=== PATIENT | female | born 1980 ===

== ENCOUNTER 2017-05-28 21:58 | Emergency (ER) | payer MEDICAID, OTHER ==
[2017-05-08 09:16] VITALS: BMI 35.9
--- NOTE | 2017-05-29 04:36 | OBHP ---
Datetime: 05/28/2017 23:38 IP Adm Impression: Term, intrauterine IP Admit Plan: Observation/Evaluation; Discharge home Admit Comment, IP Provider: [facility]# [id number] 36 y/o Female, , IUP@37 to 38 weeks by last LMP and second trimester U/S. patient presents to [facility] c/o bleeding per vagina. she admits 2 episodes of mild bleeding associated with mild pain. patie nt denies any LOF or CTX, admits good movement. Denies any fever, chills, vomiting, cp or SOB. PNC: [facility] PNI: Denies PNL: Rubella immune, HIV/RPR negative, GC/Ch neg, O+, Cephalic presentation and No placenta Previ a by last U/S at clinic PMH: Blindness L eye, Anemia, and PP depression PSH: Denies OBhx: , 4xSNVD Allg: NKDA Meds: PNV + Iron SH: Denies alcohol,smoking or drug use FH: Denies ROS: As per HPI VS: stable. 117/71, FHR:150 PE: Gravid abdo. NAD. Pelvic exam, no bleeding Cervix: FT/thick/high U/S: cephalic presentation A/P: 36 y/o Female, , IUP@37 to 38 weeks by last LMP and second trimester U/S. not in labor; no VB noted - U/S: Cephalic presentation - ER precautions given - Follow up with clinic, 05/30/17 is next visit to clinic - D/c home Case discussed and patient seen with Dr. Mcgovern --- Moi Sampson, PGY-1 OB hospitalist note: With PGY1, I saw and examined this pt. will dishcarge home. Labor insturcio tns given. She has appt with [facility] May 30. Chart rev'd (Different EDC by LMP/best sono 24w / no GBS results- advised pt to crab picker results. Pelvic Type - PN: Adequate Extremities - PN: Normal Abdomen - PN: Normal Back - PN: Normal Breast - PN: Not Done Lungs - PN: Normal Heart - PN: Normal Thyroid - PN: Normal Neurologic - PN: Normal HEENT - PN: Abnormal General - PN: Normal Presentation-Admit: Vertex FHR - Baseline A Provider: 150 Membranes, Provider: Intact Contraction Comments Provider: occ Comments, ACOG Physical Exam: Abnormal left eye Pool Provider: Negative IP Hx Assessment: The History has been Reviewed and is Current Vital Signs Provider: Reviewed; Within Normal Limits IP Chief Complaint: Vaginal bleeding NICHD Variability Prov Fetus A: Moderate 6-25bpm NICHD Accel Fetus A IP Provider: 15X15 FHR Category Provider Fetus A: Category I NICHD Decel Fetus A IP Provider: None Dilatation, Provider: FT Effacement, Provider: thick Station, Provider: high Genitourinary Exam: Normal DTRs - PN: Normal
[2017-05-29 04:54] VITALS: BP 126/76; PULSE 77; RESP 17; TEMP 98.4
== END 2017-05-28 23:40 | disposition home or self-care (01) ==
LOC: H.EROB2 21:58 → H.EROB 22:12 → H.EROB2 23:40
DX: O46.93 Antepartum hemorrhage, unspecified, third trimester (principal); O26.93 Pregnancy related conditions, unspecified, third trimester; O47.1 False labor at or after 37 completed weeks of gestation; Z3A.38 38 weeks gestation of pregnancy

== ENCOUNTER 2017-05-31 11:04 | Inpatient (IN) | payer MEDICAID, SELFPAY ==
[2017-05-31] MEDS ORDERED: Lactated Ringer's 1,000 ML IV SCH (11:30)
[2017-05-31] MEDS ORDERED: Oxytocin 30 UNITS in Sodium Chloride 0.9% 500 ML IV ONE (11:40)
[2017-05-31] MEDS ORDERED: Lidocaine 1% Inj (20ml) ONE (11:54)
[2017-05-31 11:58] LABS: BASO # 0.2 K/uL (0.0-0.2); BASO % 1.3 % (0.0-2.0); EOS # 0.4 K/uL (0.0-0.7); EOS % 3.6 % (0.0-4.0); HEMATOCRIT 36.1 % (34.0-47.0); LYMPH # 3.9 K/uL (1.0-4.3); MEAN CELL VOLUME 83.7 fl (81.0-99.0); MEAN CORPUSCULAR HGB CONC 32.3 g/dL (33.0-37.0); MEAN PLATELET VOLUME 9.3 fl (7.2-11.7); MONO # 1.6 K/uL (0.0-0.8); MONO % 13.2 % (0.0-10.0); NEUT # 6.2 K/uL (1.8-7.0); NEUT % 49.9 % (50.0-75.0); WHITE BLOOD COUNT 12.3 K/uL (4.8-10.8)
[2017-05-31] MEDS ORDERED: Oxycodone/Acetaminophen 5/325 mg Tab PO PRN (12:16)
[2017-05-31] MEDS ORDERED: Benzocaine/Menthol SPRAY TOP PRN (12:16)
--- NOTE | 2017-05-31 12:28 | OBADHP ---
Datetime: 05/31/2017 12:23 Admit Comment, IP Provider: 36 yo at 38 wks in labor Pt admitted to L_D NST reactive H_P dictated, "[id number]" (ES) Pelvic Type - PN: Adequate Extremities - PN: Normal Abdomen - PN: Normal Back - PN: Normal Lungs - PN: Normal Heart - PN: Normal HEENT - PN: Not Done General - PN: Normal FHR - Baseline A Provider: 130s Membranes, Provider: Intact Contraction Comments Provider: Q2-3 Vital Signs Provider: Reviewed; Within Normal Limits IP Chief Complaint: Uterine contractions NICHD Variability Prov Fetus A: Minimal - Undetectable to <5bpm NICHD Accel Fetus A IP Provider: 15X15 FHR Category Provider Fetus A: Category I NICHD Decel Fetus A IP Provider: None Dilatation, Provider: 10 Effacement, Provider: 0 Genitourinary Exam: Normal EGA AdmitDate IP: 38.0 IP Adm Impression: Term, intrauterine IP Admit Plan: Initiate labor protocol Datetime: 05/28/2017 23:38 Breast - PN: Not Done Thyroid - PN: Normal Neurologic - PN: Normal Presentation-Admit: Vertex Comments, ACOG Physical Exam: Abnormal left eye Pool Provider: Negative IP Hx Assessment: The History has been Reviewed and is Current Station, Provider: high DTRs - PN: Normal
--- NOTE | 2017-05-31 12:33 | OBDS ---
DELIVERY PERSONNEL Delivery Doctor: Gume uSarez MD Retreader: Barbara Hernández RN MATERNAL INFORMATION Delivery Anesthesia: None Medications in Delivery: lidocaine 1%, Pitocin 30 units in 500 ml lr Estimated Blood Loss (ml): 100 Placenta Cultured: No Provider Comments: Pt progressed to complete, SROM for clear fluid at 11:43am. Pt pushed to deliver a viable female through clear fluid at 11:46am. Apgars 9 and 9. Wt 3530 gms, 7#12. p laced on mother's abdomen. Mouth and nares bulb-suctioned. Cord clamped and cut. Cord blood collect ed. Placenta delivered spontaneously intact w/ 3vc at 11:54am. Lidocaine injected into vagina and p erineum. Second degree tear repaired w/ 3-0v and 3-0 rapide. Rectum intact. Pt and baby tolerated the procedure well. EBL 100 mL LABOR SUMMARY EDC: 06/14/2017 00:00 No. Babies in Womb: 1 Attempted: No Labor Anesthesia: None LABOR INFORMATION Reason for Induction: Not Applicable Onset of Labor: 05/31/2017 06:00 Complete Dilatation: 05/31/2017 11:26 Oxytocin: N/A Group B Beta Strep: Negative Steroids Given: None Reason Steroids Not Administered: Not Applicable MEMBRANES Membranes Rupture Method: Spontaneous Amniotic Fluid Color: Clear Amniotic Fluid Amount: Moderate Amniotic Fluid Odor: Normal STAGES OF LABOR Stage 1 hrs: 5 Stage 1 min: 26 Stage 2 hrs: 0 Stage 2 min: 20 Stage 3 hrs: 0 Stage 3 min: 8 Total Time in Labor hrs: 5 Total Time in Labor min: 54 VAGINAL DELIVERY Episiotomy: None Laceration Extension: First Degree Laceration Repair: Yes BABY A INFORMATION Infant Delivery Date/Time: 05/31/2017 11:46 Method of Delivery: Vaginal Born in Route : No : N/A Forceps: N/A Vacuum Extraction: N/A Shoulder Dystocia : No SHOULDER DYSTOCIA BABY A Infant Delivery Date/Time: 05/31/2017 11:46 PRESENTATION/POSITION BABY A Presentation: Cephalic Cephalic Presentation: Vertex Breech Presentation: N/A PLACENTA INFORMATION BABY A Placenta Delivery Time : 05/31/2017 11:54 Placenta Method of Delivery: Spontaneous Placenta Status: Delivered SCORES BABY A Heart Rate 1 min: >100 bpm Resp Effort 1 min: Good Cry Reflex Irritability 1 min: Cough or Sneeze or Pulls Away Muscle Tone 1 min: Active Motion Color 1 min: Body [place], Extremities Blue Resuscitation Effort 1 min: N/A SCORE 1 MIN: 9 Heart Rate 5 min: >100 bpm Resp Effort 5 min: Good Cry Reflex Irritability 5 min: Cough or Sneeze or Pulls Away Muscle Tone 5 min: Active Motion Color 5 min: Body [place], Extremities Blue Resuscitation Effort 5 min: N/A SCORE 5 MIN: 9 INFANT INFORMATION BABY A Gestational Age at Delivery: 38.0 Gestational Status: Term Outcome : Liveborn Infant Condition : Stable Infant Sex: Female WEIGHT/LENGTH BABY A Birthweight (gms): 3530 Infant Weight (lb): 7 Weight (oz): 12 CORD INFORMATION BABY A No. Cord Vessels: 3 Nuchal Cord : N/A Cord Blood Taken: Yes Suction: Mouth; Nose
[2017-05-31 14:47] LABS: BLOOD UREA NITROGEN 11 mg/dl (7-17); CALCIUM 8.7 mg/dL (8.4-10.2); CARBON DIOXIDE 18 mmol/L (22-30); CHLORIDE 110 mmol/L (98-107); GFR AFRICAN-AMERICAN > 60; GLUCOSE,RANDOM 110 mg/dL (65-105); POTASSIUM 4.5 MMOL/L (3.6-5.0); SODIUM 135 mmol/l (132-148)
--- NOTE | 2017-05-31 22:08 | HP ---
HISTORY OF PRESENT ILLNESS: This is a 36-year-old G5, P4-0-0-4 at 38 weeks with an EDC of 06/14/2017 by LMP who presents with painful contractions. She presented to the OB-ED, was considered almost fully by the RN and so she was sent to Labor and Delivery. This is complicated by the fact that she is advanced maternal age, declined amniocentesis, maternal obesity and anemia. The patient also has a history of depression. She also had an elevated 1 hr Glucola of 187on 03/21/2017. 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 MEDICATIONS: vitamins. ALLERGIES: NO KNOWN DRUG ALLERGIES. SOCIAL HISTORY: She denies tobacco, alcohol. No illicit drug use. FAMILY HISTORY: Noncontributory. GYNECOLOGIC HISTORY: Regular periods. Patient denies any STDs or any abnormal Pap. OBSTETRIC HISTORY: In 1999, she underwent a vaginal delivery of a male at 40 weeks, weighing 7 pounds 5 ounces. In 2000, she underwent a vaginal delivery of a female infant weighing 8 pounds 5 ounces. In 01/2012, she underwent vaginal delivery of a female weighing 8 pounds and in 08/2013, she underwent a vaginal delivery of a male weighing 8 pounds 4 ounces. LABORATORY DATA: On 01/31/2017, maternal serum AFP was negative. Gonorrhea and Chlamydia were negative. Hemoglobin A1c was 5.9 on 01/31/2017. Blood type is O positive. Antibody screen negative. Rubella immune. QuantiFERON negative. Group B strep was negative, done on 05/20/2017. On 05/21/2017, HIV was negative and RPR was negative. On 03/21/2017, one-hour Glucola was 187, noninvasive testing was no aneuploidy detected, female fetus. Cystic fibrosis was negative. Fragile X was negative. SMN1 copy #2, reduced carrier risk. Pap was negative. PHYSICAL EXAMINATION: GENERAL: Patient appears very uncomfortable. ABDOMEN: Soft, nontender, gravid. EXTREMITIES: Nontender. VAGINAL: Fully dilated per RN External monitoring in the 130s with moderate variability, positive accelerations Tocodynamometer: contractions every 2 to 3 minutes. ASSESSMENT AND PLAN: This is a 36-year-old 5, para 4-0-0-4, at 38 weeks in active labor. Pt admitted to L&D. Will draw labs and start fluid. Dre Suarez MD [facility]
[2017-06-01 07:12] LABS: HEMATOCRIT 33.2 % (34.0-47.0); MEAN CELL VOLUME 84.9 fl (81.0-99.0); MEAN CORPUSCULAR HEMOGLOBIN 26.9 pg (27.0-31.0); MEAN CORPUSCULAR HGB CONC 31.7 g/dL (33.0-37.0); RED CELL DISTRIBUTION WIDTH 19.1 % (11.5-14.5); WHITE BLOOD COUNT 12.8 K/uL (4.8-10.8)
--- NOTE | 2017-06-01 13:10 | OBPPN ---
Datetime: 06/01/2017 07:12 PP Nausea Prov: Denies PP Flatus Prov: Yes PP BM Prov: No PP Heart Prov: Normal PP Lungs Prov: Normal PP Abdomen/Uterus Prov: Normal PP Lochia Prov: Normal PP CVA Tenderness Prov: Normal PP Extremities Prov: Normal PP Impression Prov: Normal progression PP Plan Prov: Continue present management PP Progress Note Prov: PPD1 36 y/o now seen and examined at bedside this morning.. Pt had an uneventful overnight. Re ports pain is controlled with pain medications. Voiding freely w/o blood noted.Pt reports passing gas per rectum but no BM yet. Ambulating well w/o dizziness. Lochia is similar to menses volume. Pt is b reastfeeding/bottle feeding w/o difficulty. Denies nausea, vomiting, fever, chills, chest pain or obb f pain. Physical Exam: General: A_O, resting comfortably in bed, NAD HEENT: oral mucosa moist. Lungs: CTA B/L, no wheezing, rhonchi or rales CVS: RRR, S1, S2 ABD: ND, +BS; firm fundus @ umbilical level. soft, appropriate TTP. EXT: no edema, negative Yaima's sign, Neuro/psych: AAOX3. assessment: 36 y/o now doing well on PDD 1 Plan: OOB w/ caution Regular diet Percocet and Ibuprofen for pain management Encourage and ambulatory Anticipate discharge tomorrow Sultan Flores, PGY1 OB Hospitalist on-call : On rounds this morning, I saw and examined this patient. Agree with note . NATASHA Vital Signs Provider PP: Reviewed; Within Normal Limits
--- NOTE | 2017-06-02 08:00 | OBPPN ---
Datetime: 06/02/2017 07:55 PP Pain Prov: Within normal limits PP Nausea Prov: Present PP Abdomen/Uterus Prov: Normal PP Lochia Prov: Normal PP Progress Prov: Normal PP Impression Prov: Normal progression PP Plan Prov: Discharge PP Progress Note Prov: PPD 2 s/p , doing well, breast and bottle feeding Discharge home today Vital Signs Provider PP: Reviewed
--- NOTE | 2017-06-02 08:00 | OBDCSUM ---
Datetime: 06/02/2017 07:58 Discharged to, Provider: Home Follow up at, Provider: Clinic Disch Instr Activity: Normal activity; May Shower Disch Instr Diet: Regular Discharge Instructions, Provider: Routine instructions given Discharge Diagnosis, Provider: Term Delivered Discharge Time: 06/02/2017 07:58 Follow up in weeks, Provider: 6 weeks Contraception discussed, Prov: No Disch Activity Restrictions: No exercising; No lifting; No sexual activity; Nothing in vagina - Inte rcourse, tampons, douche
[2017-06-02 19:14] VITALS: BP 123/79; PULSE 84; RESP 20; TEMP 98.3; O2SAT 99
== END 2017-06-02 14:55 | disposition home or self-care (01) | DRG 373 ==
LOC: H.EROB2 11:04 → H.L&D 11:29 → H.OB/GYN 16:31
PROVIDERS: ADMIT Obstetrics & Gynecology; ATTEND Obstetrics & Gynecology
PROC: 0KQM0ZZ Repair Perineum Muscle, Open Approach (ICD-10-PCS; principal; 2017-05-31)
PROC: 10E0XZZ Delivery of Products of Conception, External Approach (ICD-10-PCS; 2017-05-31)
PROC: 4A1HXCZ Monitoring of Products of Conception, Cardiac Rate, External Approach (ICD-10-PCS; 2017-05-31)
DX: O70.1 Second degree perineal laceration during delivery (principal); H54.62 Unqualified visual loss, left eye, normal vision right eye; Z37.0 Single live birth; Z3A.38 38 weeks gestation of pregnancy